=== PATIENT | female | born 1980 ===

== ENCOUNTER 2018-06-06 08:59 | Emergency (ER) | payer OTHER ==
[2018-06-06 09:19] VITALS: BMI 22.8
[2018-06-06 09:20] VITALS: O2SAT 100
--- NOTE | 2018-06-06 10:53 | C.PDOC ---
History Of Present Illness 37 y/o female presents to the ED complaining of pain to the left posterior knee, worsening over the past 2 days. States she slipped and fell 2 months ago, felt like she pulled something at that time. For the last few days patient has developed pain and swelling to the left posterior knee. Pain radiates down her leg. She denies any fevers or chills. Time Seen by Provider: 06/06/18 09:35 Chief Complaint (Nursing): Lower Extremity Problem/Injury History Per: Patient History/Exam Limitations: no limitations Onset/Duration Of Symptoms: Days Current Symptoms Are (Timing): Still Present Past Medical History Reviewed: Historical Data, Nursing Documentation, Vital Signs Vital Signs: Last Vital Signs Temp 98.1 F 06/06/18 09:19 Pulse 80 06/06/18 09:19 Resp 20 06/06/18 09:19 BP 139/76 06/06/18 09:19 Pulse Ox 100 06/06/18 09:19 - Medical History PMH: No Chronic Diseases Family History: States: Unknown Family Hx - Social History Hx Tobacco Use: No Hx Alcohol Use: No Hx Substance Use: No - Immunization History Hx Tetanus Toxoid Vaccination: No Hx Influenza Vaccination: No Hx Pneumococcal Vaccination: No Review Of Systems Except As Marked, All Systems Reviewed And Found Negative. Constitutional: Negative for: Fever, Chills Musculoskeletal: Positive for: Leg Pain (posterior left knee) Skin: Negative for: Rash Neurological: Negative for: Weakness, Numbness Physical Exam - Physical Exam Appears: Non-toxic, No Acute Distress Skin: Warm, Dry, No Rash Head: Atraumatic, Normacephalic Eye(s): bilateral: Normal Inspection, PERRL, EOMI Oral Mucosa: Moist Neck: Normal ROM Chest: Symmetrical Extremity: Normal ROM (full active and passive ROM of the left knee), Tenderness (to left popliteal fossa), Capillary Refill (< 2 sec), No Deformity, Swelling (to left popliteal fossa) Pulses: Left Dorsalis Pedis: Normal, Right Dorsalis Pedis: Normal Neurological/Psych: Oriented x3, Normal Motor, Normal Sensation ED Course And Treatment O2 Sat by Pulse Oximetry: 100 (RA) Pulse Ox Interpretation: Normal Medical Decision Making Medical Decision Making: 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 Patient is stable for discharge home, advised to fu with PMD. Disposition Counseled Patient/Family Regarding: Studies Performed, Diagnosis, Need For Followup, Rx Given - Disposition Referrals: [facility] [Outside] Anca Palm MD [Staff Provider] - Disposition: HOME/ ROUTINE Disposition Time: 12:14 Condition: STABLE Prescriptions: Ibuprofen [Motrin] 600 mg PO TID #15 tab Instructions: Bursitis (DC) Forms: [facility] (Swiss), General Discharge Instructions - POA Present On Arrival: None - Clinical Impression Clinical Impression: Joint pain, Joint swelling - Scribe Statement The provider has reviewed the documentation as recorded by the Carmen Salas Provider Attestation: All medical record entries made by the Carmen were at my direction and personally dictated by me. I have reviewed the chart and agree that the record accurately reflects my personal performance of the history, physical exam, medical decision making, and the department course for this patient. I have also personally directed, reviewed, and agree with the discharge instructions and disposition.
[2018-06-06 11:17] VITALS: BP 111/75; PULSE 64; RESP 18; TEMP 97.8
--- NOTE | 2018-06-09 11:38 | VASCLAB ---
Date of service: 06/06/2018 PROCEDURE: Left Lower Extremity Venous Duplex Exam. HISTORY: r/o bakers cyst PRIORS: None. TECHNIQUE: Left common femoral, femoral, popliteal and posterior tibial, peroneal and great saphenous veins were evaluated. Flow was assessed with color Doppler, compressibility, assessment of phasic flow and augmentation response. Report prepared by ALVAREZ Collier, RVT FINDINGS: LEFT: 1. Common Femoral Vein: 1.1. Compressibility - Fully compressible: Thrombus - None : Flow - Phasic: Augmentation -Normal: Reflux - None. 2. Femoral Vein: 2.1. Compressibility - Fully compressible: Thrombus - None: Flow - Phasic: Augmentation -Normal: Reflux - None. 3. Popliteal Vein: 3.1. Compressibility - Fully compressible: Thrombus - None: Flow - Phasic: Augmentation -Normal: Reflux - None. 4. Posterior Tibial Vein: 4.1. Compressibility - Fully compressible: Thrombus - None: Flow - Phasic: Augmentation -Normal: Reflux - None. 5. Peroneal Vein: 5.1. Compressibility - Fully compressible: Thrombus - None: Flow - Phasic: Augmentation -Normal: Reflux - None. 6. Great Saphenous Vein: 6.1. Compressibility - Fully compressible: Thrombus - None: Flow - Phasic: Augmentation - Normal: Reflux - None. OTHER FINDINGS: IMPRESSION: No evidence of deep or superficial vein thrombosis of the left lower extremity with excellent venous flow. Normal valve function noted of the left side. Normal venous flow noted in the right common femoral vein.
== END 2018-06-06 12:20 | disposition home or self-care (01) ==
LOC: C.ER 08:59
DX: M25.562 Pain in left knee (principal); M25.462 Effusion, left knee